=== PATIENT | male | born 1945 | race Two or more races ===

== ENCOUNTER 2025-07-23 09:06 | Emergency (ER) | payer MEDICARE, MEDICAID, SELFPAY ==
[2025-07-23 09:25] VITALS: BP 121/71; PULSE 75; RESP 17; TEMP 36.9; O2SAT 96
--- NOTE | 2025-07-23 09:36 | EDNOTE_ITS ---
<Statement entered by Michelle Schroeder MD - 07/23/25 11:56> As co-signing physician, I was present and available for consult prn. I concur with the plan and care as documented by the midlevel provider. ED General RME/HPI General Chief complaint: General Adult/Misc Complain Stated complaint: Hemorrhoids X 5 months, bleeding last night Source: patient Arrival date/time: 07/23/25 09:06 80-year-old male with a history of hemorrhoids presents to the emergency room with a chief complaint of bright rectal bleeding that occurred yesterday night but is now resolved. Mode of arrival: ambulatory Limitations: no limitations Related Data Home Medications ?Medication ?Instructions ?Recorded ?Confirmed metoprolol succinate 25 mg 25 mg PO QDAY 06/25/2407/08 tablet,extended release 24 hr pantoprazole 40 mg tablet,delayed 40 mg PO QDAY 07/23/24 release tamsulosin 0.4 mg capsule 0.8 mg PO QDAY 06/25/2407/08 venlafaxine 37.5 mg 37.5 mg PO QDAY 06/25/24 capsule,extended release 24 hr Previous Rx's ?Medication ?Instructions ?Recorded docusate sodium 100 mg capsule 100 mg PO QDAY #14 caps 07/23/25 (Colace) hydrocortisone acetate 25 mg 25 mg ID BID #24 [id number] 07/23 rectal suppository (Anusol-HC) Allergies Allergy/AdvReac Type Severity Reaction Status Date / Time No Known Allergies Allergy Verified 07/23/25 09:11 Review of Systems Review of Systems Systems Reviewed: All systems reviewed, normal except as documented Constitutional Constitutional: Reports system reviewed and no additional complaints, except as documented, Denies fatigue, Denies fever(s), Denies headache(s) and Denies weakness Eyes Eyes: Reports system reviewed and no additional complaints, except as documented, Denies blurry vision and Denies change in vision ENT Ears, Nose, Mouth, and Throat: Reports system reviewed and no additional complaints, except as documented, Denies otalgia, Denies headache(s), Denies nasal congestion, Denies throat swelling and Denies vertigo Cardiovascular Cardiovascular: Reports system reviewed and no additional complaints, except as documented, Denies chest pain, Denies dyspnea and Denies dyspnea on exertion Respiratory Respiratory: Reports system reviewed and no additional complaints, except as documented, Denies chest congestion, Denies cough, Denies dyspnea, Denies dyspnea on exertion and Denies wheezing Gastrointestinal Gastrointestinal: Reports system reviewed and no additional complaints, except as documented, Denies abdominal pain, Denies cramping, Denies nausea and Denies vomiting Genitourinary Genitourinary: Reports system reviewed and no additional complaints, except as documented, Denies dysuria and Denies hematuria Musculoskeletal Musculoskeletal: Reports system reviewed and no additional complaints, except as documented and Denies back pain Integumentary/Breasts Skin/Breast: Reports system reviewed and no additional complaints, except as documented and Denies wounds Neurologic Neurologic: Reports system reviewed and no additional complaints, except as documented, Denies confusion, Denies headache(s), Denies lack of coordination, Denies vertigo and Denies weakness Psychiatric Psychiatric: Reports system reviewed and no additional complaints, except as d ocumented, Denies anxiety, Denies confusion, Denies depression, Denies paranoia, Denies suicidal ideation and Denies tactile hallucinations Endocrine Endocrine: Reports system reviewed and no additional complaints, except as documented and Denies fatigue Hematologic/Lymphatic Hematologic/Lymphatic: Reports system reviewed and no additional complaints, except as documented and Denies lymphadenopathy Allergic/Immunologic Allergic/Immunologic: Reports system reviewed and no additional complaints, except as documented, Denies throat swelling, Denies urticaria and Denies wheezing ED Exam General Limitations: Present no limitations General appearance: Present alert and in no apparent distress Head Head exam: Present atraumatic Eye Eye exam: Present normal appearance, PERRL and EOMI ENT ENT exam: Present normal exam, normal oropharynx and mucous membranes moist Neck Neck exam: Present normal inspection, full ROM and trachea midline Chest Chest inspection: Present normal inspection and symmetric chest wall rise Respiratory Respiratory exam: Present normal lung sounds bilaterally Cardiovascular Cardiovascular exam: Present regular rate, normal rhythm and normal heart sounds Abdominal Exam Abdominal exam: Present soft and normal bowel sounds; Absent tenderness Extremities Exam Extremities exam: Present normal inspection and full ROM Back Exam Back exam: Present normal inspection and full ROM Neurological Exam Neurological exam: Present alert, oriented X3 and CN II-XII intact Psychiatric Psychiatric exam: Present normal affect and normal mood Skin Skin exam: Present warm, dry, intact and normal color Course Quality Measures none Vital Signs Vital signs: Vital Signs Temperature 98.4 F 09/16/25 09:25 Pulse Rate 75 07/23/25 09:25 Respiratory Rate 17 07/23/25 09:25 Blood Pressure 121/71 07/23/25 09:25 Pulse Oximetry (%) 96 07/23/25 09:25 Oxygen Delivery Method Room Air 07/23/25 09:25 Discharge Plan Plan Patient Disposition: HOME (Self Care) Discharge Disposition comment: Stable Prescriptions/Referrals Prescriptions/Med Rec: New hydrocortisone acetate [Anusol-HC] 25 mg suppository 25 mg ID BID Qty: 24 0RF docusate sodium [Colace] 100 mg capsule 100 mg PO QDAY Qty: 14 0RF No Action venlafaxine 37.5 mg capsule,extended release 24hr 37.5 mg PO QDAY tamsulosin 0.4 mg capsule 0.8 mg PO QDAY pantoprazole 40 mg tablet,delayed release (DR/EC) 40 mg PO QDAY metoprolol succinate 25 mg tablet extended release 24 hr 25 mg PO QDAY Problem List Clinical Impression: Hemorrhoids Patient/Caregiver Discharge Instructions Education Materials: Understanding Hemorrhoids, ED Hemorrhoids Additional Instructions: Por favor, consulte con umana m?dico de cabecera en las pr?ximas 24 a 48 horas. Si eileen signos y s?ntomas persisten, podr?a indicarse marietta derivaci?n para la extirpaci?n quir?rgica de las hemorroides. El medicamento fue enviado a umana farmacia; rec?jalo y t?seaman seg?n lo indicado. Si observa cualquier signo de empeoramiento de los signos o s?ntomas, acuda a urgencias de inmediato. Print Language: [place] Stand Alone Forms: Elizabeth Award Info., Work/School Release, Patient Portal Info Letter PA/MULTIFOCAL BUTTON INSPECTOR Supervising Physician PA/MULTIFOCAL BUTTON INSPECTOR Supervising Physician: Dr. Torres [facility] Narrative MDM hospital course: 80-year-old male with a history of hemorrhoids presents to the emergency room with a chief complaint of bright rectal bleeding that occurred yesterday night but is now resolved. Patient is hemodynamically stable and in no apparent distress Patient denies any abdominal pain, dysuria, black tarry stools, or any more rectal bleeding. Patient states he has a history of hemorrhoids and was told he will need surgery which she refused. Patient states that yesterday while straining to use the restroom he believes he ruptured a hemorrhoid because he had an episode of bright red blood in the stool. Patient states that the symptoms are now resolved. Medication was sent to his pharmacy. Patient denies any other complaints Patient was discharged and educated to follow-up with primary care provider in the next 24 to 48 hours and return to the emergency room for any evidence of worsening signs or symptoms Clinical Information Provided by none Medical Records Reviewed None Meds/Rx Considered, not Ordered None Labs/Rad/Tests considered, not Ordered None Chronic Illness/Social Conditions which may negatively complicate care or outcome(s)-explain: None or not applicable EKG EKG not done Lab Interpretation Labs: none Imaging Imaging interpretation: none Medication Administration(s) none Diagnosis Differential diagnosis: Hemorrhoids/GI bleed/anal fissure Differential dx and/or dx ruled out: GI bleed Most likely dx, and/or detailed dx discussion: Hemorrhoids Dispositon Disposition: Discharge Home
== END 2025-07-23 09:52 | disposition home or self-care (01) ==
LOC: SERX 09:47
PROVIDERS: Emergency Provider Nurse Practitioner Family; PCP Nurse Practitioner Family
DX: K64.9 Unspecified hemorrhoids (principal); K62.5 Hemorrhage of anus and rectum
CPT/HCPCS: 99281

== ENCOUNTER → 2025-08-06 | Outpatient (CLI) | payer MEDICARE, MEDICAID, SELFPAY ==
[2025-08-05 15:25] LABS: Basophils # (Auto) 0.0 Thou/mm3 (0.0-0.2); Basophils % (Auto) 1 % (0-2.5); Eosinophils # (Auto) 0.3 Thou/mm3 (0.0-0.5); Eosinophils % (Auto) 5 % (0-10); Hematocrit 40.8 % (41.0-53.0); Hemoglobin 13.6 g/dL (13.5-16.0); Immature Granulocytes Auto 0.01 Thou/mm3 (0.00-0.00); Lymphocytes # (Auto) 1.0 Thou/mm3 (1.0-4.8); Lymphocytes % (Auto) 20 % (10-50); Mean Corpuscular HGB Conc 33.3 g/dl (31.0-37.0); Mean Corpuscular Hemoglobin 32.2 pg (25.0-35.0); Mean Corpuscular Volume 97 fL (80-100); Monocytes # (Auto) 0.6 Thou/mm3 (0.0-0.8); Monocytes % (Auto) 11 % (0-12); Neutrophils # (Auto) 3.4 Thou/mm3 (1.8-7.7); Neutrophils % (Auto) 63 % (37-80); Nucleated Red Blood Cell # 0.00 Thou/mm3 (0.00-0.00); Nucleated Red Blood Cell % 0 /100 WBC (0); Platelet Count 200 Thou/mm3 (140-440); RDW Standard Deviation 47.5 fL (35.1-43.9); Red Blood Count 4.22 Miln/mm3 (4.50-5.90); White Blood Count 5.3 Thou/mm3 (3.8-10.6)
[2025-08-05 15:35] LABS: Parathyroid Hormone Intact 95.5 pg/ml (18.5-88.0)
[2025-08-05 15:40] LABS: Alanine Aminotransferase 13 U/L (10-49); Albumin, Serum 4.0 gm/dL (3.4-4.8); Albumin/Globulin Ratio 1.4 (1.2-2.2); Alkaline Phosphatase 85 U/L (46-116); Anion Gap 7 (7-16); Aspartate Amino Transferase 17 U/L (0-34); BUN/Creatinine Ratio 18 Ratio (12-20); Bilirubin,Total 1.1 mg/dL (0.3-1.2); Blood Urea Nitrogen 25 mg/dL (9-23); Calcium 9.1 mg/dL (8.3-10.6); Calcium (Corrected) 9.1 mg/dL (8.5-10.1); Carbon Dioxide 25.0 mMol/L (20.0-31.0); Chloride 109 mMol/L (98-107); Creatinine (Component) 1.4 mg/dL (0.6-1.3); Free T4 (Free Thyroxine) 1.12 ng/dL (0.89-1.76); Globulin 2.9 gm/dL (2.3-3.5); Glucose 102 mg/dL (74-106); Osmolality,Calculated 285 (275-295); Phosphorous 2.5 mg/dL (2.4-5.1); Potassium 4.4 mMol/L (3.4-5.1); Sodium 141 mMol/L (136-145); Thyroid Stimulating Hormone 1.80 uIU/mL (0.55-4.78); Total Protein 6.9 gm/dL (5.7-8.2); Uric Acid 8.2 mg/dL (3.7-9.2); eGFR 51 See Note
[2025-08-05 15:47] LABS: Vitamin D 25 Hydroxy Total 33.9 ng/mL (7.3-40.2)
[2025-08-05 16:41] LABS: Creatinine MALB Rnd Ur 192 mg/dL (30-125); Microalbumin Creat Ratio 2 mg/gCrea (<30); Microalbumin, Random Urine 4 mg/L (0-300)
--- NOTE | 2025-08-06 13:43 | XR_ITS ---
Examination: CT abdomen, without intravenous contrast. CT abdomen, with intravenous contrast. Sagittal and coronal 2-D reconstructions. Time of exam:August 06, 2025, 1500 hours INDICATIONS: Diagnosis neoplasm unspecified behavior left kidney, hyperechoic lesion lower pole right kidney 10 x 9 x 9 mm on ultrasound June 27, 2024 CTDI: vol (mGy) 16 DLP: (mGycm) 468 Technique: Multiple 3.0 mm axial noncontrast images of the abdomen have been obtained. Multiple 3.0 mm axial images post administration 30 cc Isovue-300 intravenous contrast have been obtained. Sagittal and coronal 3-D reconstructions have been obtained. Low dose protocols were performed. One or more of the following dose reduction techniques were used; automated exposure control, adjustment of the mA and/or KV according to patient size, use of iterative reconstruction technique. Findings: Right lobe of the liver 14 mm cyst No gallstones No pancreatic or adrenal mass 5 cm right renal parapelvic cyst Soft tissue mass lower pole right kidney not characteristic for an angiomyolipoma, measuring 8 mm Aorta normal size No bowel obstruction Normal appendix IMPRESSION: 8 mm solid mass lower pole right kidney, differential would include early renal cell carcinoma, recommend MRI abdomen follow-up pre and postcontrast for best staging
== END | disposition home or self-care (01) ==
PROVIDERS: Referring Provider Nurse Practitioner Family; Visit Provider Nurse Practitioner Family
DX: N28.89 Other specified disorders of kidney and ureter (principal); N04.9 Nephrotic syndrome with unspecified morphologic changes; M10.30 Gout due to renal impairment, unspecified site; E21.3 Hyperparathyroidism, unspecified; E55.9 Vitamin D deficiency, unspecified; E83.39 Other disorders of phosphorus metabolism; D64.9 Anemia, unspecified
CPT/HCPCS: 36415; 74170; 80053; 82043; 82306; 82570; 83970; 84100; 84439; 84443; 84550; 85025; A4649; Q9967

== ENCOUNTER → 2025-10-10 | Outpatient (CLI) | payer MEDICARE, MEDICAID, SELFPAY ==
--- NOTE | 2025-10-10 08:30 | XR_ITS ---
Examination: MRI abdomen with intravenous contrast. MRI abdomen without intravenous contrast. 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 Transverse images, TR 6020, TE 107. T1 weighted transverse images, TR 582, TE 9.5. T2-weighted sagittal images, TR 4000, TE 105. T2-weighted sagittal images, TR 4000, TE 5. Coronal images, TR 4210, TE 107. Axial and coronal images are obtained post 19 cc intravenous injection, gadolinium. Findings: Benign liver cysts No biliary tract dilatation No gallstones No pancreatic mass Spleen is not enlarged Upper pole 4.9 cm right renal cyst 11 mm solid-appearing mass lower pole right kidney on the CT examination 08/06/2025 is not clearly visualized on this study No enhancing renal mass lesions noted IMPRESSION: Recommend this patient return for dedicated renal sonography with a radiologist in attendance
== END | disposition home or self-care (01) ==
PROVIDERS: PCP Nurse Practitioner Family; Referring Provider Nurse Practitioner Family; Visit Provider Nurse Practitioner Family
DX: D49.511 Neoplasm of unspecified behavior of right kidney (principal)
CPT/HCPCS: 74183; A9577